=== PATIENT | female | born 1945 | race Caucasian/White ===

== ENCOUNTER 2017-05-12 07:22 | Day surgery (SDC) | payer MEDICARE ==
[2017-05-09 09:01] LABS: BASOPHILS # (AUTO) 0.07 x10^3/uL (0-0.1); BASOPHILS % (AUTO) 1 % (0-1); EOSINOPHILS # (AUTO) 0.16 x10^3/uL (0-0.4); EOSINOPHILS % (AUTO) 2 % (1-7); LYMPHOCYTES # (AUTO) 2.38 x10^3/uL (1-3.4); LYMPHOCYTES % (AUTO) 29 % (22-44); MD NO; MEAN CORPUSCULAR HEMOGLOBIN 30.8 pg (27.0-34.8); MEAN CORPUSCULAR HGB CONC 33.2 g/dL (32.4-35.8); MEAN CORPUSCULAR VOLUME 92.8 fL (80-100); MEAN PLATELET VOLUME 8.9 fL (7.4-10.4); MONOCYTES # (AUTO) 0.45 x10^3/uL (0.2-0.8); MONOCYTES % (AUTO) 6 % (2-9); NEUTROPHILS # (AUTO) 5.07 x10^3/uL (1.8-6.8); NEUTROPHILS % (AUTO) 62 % (42-75); PLATELET COUNT 322 x10^3/uL (130-400); RED BLOOD COUNT 4.91 x10^6/uL (3.82-5.3); RED CELL DISTRIBUTION WIDTH 13.9 % (9.6-15.2)
[2017-05-09 09:06] LABS: INTERNATIONAL NORMALIZED RATIO 0.99 (0.93-1.1); PROTHROMBIN TIME 10.2 Seconds (9.6-11.5)
[2017-05-09 09:10] LABS: ANION GAP 7 mmol/L (5-15); CALCIUM 8.9 mg/dL (8.5-10.1); CHLORIDE 107 mmol/L (98-107); CREATININE 0.95 mg/dL (0.55-1.02)
[2017-05-09 09:11] LABS: ALANINE AMINOTRANSFERASE 20 U/L (12-78)
[2017-05-09 09:13] LABS: ALKALINE PHOSPHATASE 78 U/L (45-117); BILIRUBIN,TOTAL 0.6 mg/dL (0.2-1.0); TOTAL PROTEIN 8.3 g/dL (6.4-8.2)
[2017-05-09 09:29] VITALS: BP 153/89
[~2017-05-12] VITALS: Ht 162.6 cm; Wt 78.0 kg
[~2017-05-12 07:22] MED LIST: ACET325T14 PO; BUPIVACAINE/PF 0.5% ONE; DOCU100C33 PO; EPINEPHRINE 1 MG/ML, 1ML ONE; ISOSULFAN BLUE 10 MG/ML, 5ML IV ONE
[2017-05-12] MEDS ORDERED: MIDAZOLAM 1 MG/ML, 2ML ONE (07:41)
[2017-05-12] MEDS ORDERED: FENTANYL PF 250 MCG/5ML ONE (07:41)
[2017-05-12] MEDS ORDERED: DEXAMETHASONE 4 MG/ML, 1ML ONE (07:51)
[2017-05-12] MEDS ORDERED: CEFAZOLIN 1,000 MG ONE (07:51)
[2017-05-12] MEDS ORDERED: ONDANSETRON 2MG/ML, 2ML ONE (07:51)
[2017-05-12] MEDS ORDERED: PROPOFOL 10 MG/ML, 20ML ONE (07:51)
[2017-05-12] MEDS ORDERED: LACTATED RINGERS 1,000 ML IV SCH (08:56)
[2017-05-12] MEDS ORDERED: EPHEDRINE 50 MG/ML, 1ML ONE (09:03)
[2017-05-12] MEDS ORDERED: LIDOCAINE-MPF 2% ,5ML ONE (09:20)
[2017-05-12] MEDS ORDERED: LIDOCAINE GEL 2%, 5ML ONE (09:20)
[2017-05-12] MEDS ORDERED: SUCCINYLCHOLINE 20 MG/ML, 10ML ONE (09:20)
[2017-05-12] MEDS ORDERED: BUPIVACAINE/PF-EPI 0.5% 1:200K IM ONE (09:31)
[2017-05-12] MEDS ORDERED: KETOROLAC 30 MG/1 ML ONE (09:38)
[2017-05-12] MEDS ORDERED: HYDROmorphone 1 MG/ML, 1ML IV PRN (10:00)
[2017-05-12] MEDS ORDERED: FENTANYL PF 100 MCG/2ML IV PRN (10:00)
[2017-05-12] MEDS ORDERED: ONDANSETRON 2MG/ML, 2ML IVPush PRN (10:00)
[2017-05-12] MEDS ORDERED: MEPERIDINE/PF 25MG/0.5ML IVPush PRN (10:00)
[2017-05-12] MEDS ORDERED: ALBUTEROL/IPRATROPIUM 2.5MG/0.5MG, 3 ML NPPB PRN (10:00)
[2017-05-12] MEDS ORDERED: PROMETHAZINE 12.5 MG SUPP PR PRN (10:00)
[2017-05-12] MEDS ORDERED: MIDAZOLAM 1 MG/ML, 2ML IV PRN (10:00)
[2017-05-12] MEDS ORDERED: LABETALOL 5MG/ML, 20ML IV PRN (10:00)
[2017-05-12] MEDS ORDERED: OXYcodone 5 MG/5 ML ORAL.SOL UDC PO PRN (10:00)
[2017-05-12] MEDS ORDERED: hydrALAzine 20 MG/ML, 1ML IV PRN (10:00)
[2017-05-12] MEDS ORDERED: ACETAMINOPHEN 325 MG TABLET PO PRN (10:00)
== END 2017-05-12 13:50 ==
LOC: OR 07:22 → OUT 13:50
PROVIDERS: ATTEND Surgery
DX: C50.912 Malignant neoplasm of unspecified site of left female breast (principal); Z87.39 Personal history of other diseases of the musculoskeletal system and connective tissue; Z87.19 Personal history of other diseases of the digestive system; Z98.890 Other specified postprocedural states; Z90.710 Acquired absence of both cervix and uterus
CPT/HCPCS: 19281; 19301; 36415; 38525; 38792; 80053; 85025; 85610; 88305; 88307; 93005; A9541; J0171; J0330; J0690; J1100; J1885; J2250; J2405; J2704; J3010; J3490; J7120